=== PATIENT | male | born 1980 | race Caucasian/White ===

== ENCOUNTER 2022-06-29 19:03 | Emergency (ER) | payer BC ==
[2022-06-29] MEDS ORDERED: Sodium Chloride 0.9% 10 ML Syringe FLUSH PRN (19:26)
[2022-06-29 20:18] LABS: ESTIMATED GFR 110 mL/min (>60)
== END 2022-06-29 22:03 | disposition home or self-care (01) ==
LOC: JD.ED 19:03
DX: R00.2 Palpitations (principal)
CPT/HCPCS: 36415; 71045; 71045-26; 80053; 83735; 84443; 84484; 85025; 85379; 85610; 93005; 93225; 93226; 99285